=== PATIENT | female | born 1990 | race Asian ===

== ENCOUNTER 2017-09-02 19:42 | Emergency (ER) | payer BC ==
[~2017-09-02] VITALS: Ht 162.6 cm; Wt 52.6 kg
[2017-09-02 20:17] VITALS: Ht 162.6 cm; Wt 52.6 kg
[2017-09-02 21:09] LABS: BASOPHIL % 0.6 % (0-2); PLATELET COUNT 230 x10^3mcL (130-400); RED CELL DISTRIBUTION WIDTH 12.7 % (11.5-14.5)
[2017-09-02 21:10] LABS: UA SPECIFIC GRAVITY <=1.005 (1.005-1.035); microscopic required? YES; urine erythrocyte 2+ (NEGATIVE)
[2017-09-02 23:04] VITALS: BP 112/68
== END 2017-09-02 23:04 | disposition home or self-care (01) ==
LOC: ED 19:42
PROVIDERS: Emergency Medicine
PROC: BU45ZZZ Ultrasonography of Bilateral Ovaries (ICD-10-PCS; principal; 2017-09-02)
DX: O20.0 Threatened abortion (principal); Z3A.01 Less than 8 weeks gestation of pregnancy
CPT/HCPCS: 36415